=== PATIENT | female | born 1995 | race Caucasian/White ===

== ENCOUNTER 2018-06-29 17:42 | Emergency (ER) | payer SELFPAY ==
[~2018-06-29] VITALS: Ht 165.1 cm; Wt 50.0 kg
[2018-06-29 19:29] LABS: CLARITY URINE CLEAR (CLEAR); COLOR URINE YELLOW (YELLOW); KETONES URINE NEGATIVE (NEGATIVE); LEUKOCYTE ESTERASE URINE NEGATIVE (NEGATIVE); NITRITE URINE NEGATIVE (NEGATIVE); OCCULT BLOOD URINE NEGATIVE (NEGATIVE); PH URINE 6.5 (4.5-8.0); PROTEIN URINE NEGATIVE (NEGATIVE); SPECIFIC GRAVITY URINE 1.005 (1.005-1.030); UROBILINOGEN URINE 0.2 E.U./dL (0.2-1.0)
[2018-06-29 22:19] VITALS: BP 130/73
== END 2018-06-29 22:47 | disposition home or self-care (01) ==
LOC: ER 17:42
DX: R10.2 Pelvic and perineal pain (principal); R11.0 Nausea; F12.10 Cannabis abuse, uncomplicated
CPT/HCPCS: 81025; 99283

== ENCOUNTER 2019-04-05 17:23 | Emergency (ER) | payer MEDICAID ==
[~2019-04-05] VITALS: Ht 160 cm; Wt 50.0 kg
[2019-04-05 18:03] VITALS: BP 109/60
== END 2019-04-05 18:31 | disposition home or self-care (01) ==
LOC: ER 17:23
DX: B37.2 Candidiasis of skin and nail (principal); F12.10 Cannabis abuse, uncomplicated
CPT/HCPCS: 99283